=== PATIENT | male | born 1970 | race Caucasian/White ===

== ENCOUNTER 2022-06-13 08:37 | Day surgery (SDC) | payer BC, SELFPAY ==
[2022-06-13] MEDS: Lactated Ringers 1,000 ML 15 ML IV (08:45)
[2022-06-13 08:59] VITALS: BP 137/75; PULSE 64; RESP 16; TEMP 36.7; O2SAT 96; BMI 26.7
--- NOTE | 2022-06-13 09:04 | HP.PCM_ITS ---
HPI - General General Date of Admission: 06/13/22 Date of Service: 06/13/22 Chief Complaint: HPI Narrative DEVIKA FELIX, is a 51 M who presents arrives for a screening colonoscopy. He is not having any problems with his bowels. He denies any nausea, vomiting or diarrhea. He denies any signs of lower GI bleeding in the form of melena or hematochezia. He has no family history of colon cancer or colon polyps. His weight has been stable. He is not having any bleeding per rectum. Overall is in very good health. All other 16 review of systems are negative except as pertinent positive mentioned HPI. [facility] Medical History (Updated 06/08/22 @ 15:22 by Keke Jasso) Alcohol use Anxiety Syncope Unspecified right bundle-branch block Home Medications atenolol 25 mg tablet 12.5 mg PO BID 03/07/22 [History Last Taken 06/13/22 06:45] lorazepam 0.5 mg tablet (Ativan) 0.5 mg PO DAILY PRN Anxiety 03/07/22 [History Last Taken 06/13/22 06:45] Allergy/AdvReac Type Severity Reaction Status Date / Time No Known Allergies Allergy Verified 06/13/22 08:58 Family History Father Heart disease Brother Hypertension Diabetes Surgical History History of ankle surgery Social History Smoking Status: Never smoker alcohol intake: never ROS Review of Systems ROS Unobtainable: other Constitutional Constitutional: Denies fatigue, fever(s), poor appetite, weight gain or weight loss ENT HEENT: Denies mouth lesions Cardiovascular Cardiovascular: Denies abdominal bloating, abdominal edema or abdominal pain Respiratory/Chest Respiratory/Chest: Denies change in mental status, change in phlegm color, chest congestion or chest tightness Gastrointestinal Gastrointestinal: Denies belching, bloating, change in bowel habits, change in stool character, chewing difficulty, coffee ground emesis, constipation, cramping, diarrhea, dyspepsia, dysphagia, early satiety, excessive flatus, fecal incontinence, heartburn, hematemesis, hematochezia, hemorrhoids, loose stools, melena, nausea, odynophagia, rectal bleeding, tenesmus, vomiting or weight changes Genitourinary Genitourinary: Denies abdominal discomfort, burning urination or itching Musculoskeletal Musculoskeletal: Reports as per HPI; Denies muscle weakness or myalgias Integumentary Integumentary: Denies jaundice Neurologic Neurologic: Denies lack of coordination or weakness Psychiatric Psychiatric: Denies confusion, depression, memory loss, mood swings, paranoia or suicidal ideation Endocrine Endocrinology: Denies systems reviewed and no addt'l complaints, except as docum ented Hematologic/Lymphatic Hematologic/Lymphatic: Denies anemia, easy bleeding, easy bruising or lymphadenopathy Allergic/Immunologic Allergic/Immunologic: Denies systems reviewed and no addt'l complaints, except as documented Vital Signs Vital Signs Vital Signs: 06/13/22 08:59 06/13/22 08:59 Temperature 98.1 F Temperature Source Temporal Pulse Rate 64 Respiratory Rate 16 Respiratory Pattern Normal Blood Pressure 137/75 H Blood Pressure Mean 95 Blood Pressure Source Monitor Blood Pressure Position Supine Blood Pressure Location Left Arm Pulse Ox 96 Oxygen Delivery Method Room Air Weight Weight: 181 lb 3.52 oz Body Mass Index (BMI) 26.7 Physical Exam Const alert General Appearance: cooperative Orientation / Consciousness: oriented to person HEENT hearing grossly normal bilaterally Head and Scalp: normal to inspection Face and Sinus: face symmetric Nose: external nose normal Mouth: oral and palatal mucosa normal Eyes conjunctivae normal General Eye: normal appearance of both eyes Neck full ROM General: normal visual inspection Lymph Lymphatic: no lymphadenopathy noted Chest inspection of chest normal and palpation of chest normal Chest: symmetrical chest wall rise Resp normal respiratory effort Effort and Inspection: able to speak in complete sentences Cardio regular rate GI non-distended Percussion: normal to percussion Rectal Exam: deferred Neuro Speech: speech normal Gait (Neuro): normal gait Assessment & Plan Assessment/Plan (1) Encounter for screening for malignant neoplasm of colon: PLAN: He was explained alternatives, risk, benefits including not withstanding bleeding, infection, sepsis, perforation, need for emergent surgery . He will have an ASA of 1.
[2022-06-13 10:10] VITALS: BP 115/54; BP 137/75; PULSE 59; RESP 14; TEMP 36.8; O2SAT 97
--- NOTE | 2022-06-13 10:14 | OP.COLON_ITS ---
Patient Name: Brandon Nice Procedure Date: 06/13/2022 9:45 AM Date of : 1970 Age: 51 Procedure: Colonoscopy Indications: Screening for colorectal malignant neoplasm Providers: Crispin Marcano DO Medicines: Monitored Anesthesia Care Patient Profile: This is a 51 year old male. Refer to note in patient chart for documentation of history and physical. Last Colonoscopy: none. The patient's first colonoscopy is today. Complications: No immediate complications. Procedure: Pre-Anesthesia Assessment: - Prior to the procedure, a History and Physical was performed, and patient medications and allergies were reviewed. The risks and benefits of the procedure and the sedation options and risks were discussed with the patient. All questions were answered and informed consent was obtained. Patient identification and proposed procedure were verified by the physician in the pre-procedure area. Mental Status Examination: alert and oriented. Airway Examination: normal oropharyngeal airway and neck mobility. Respiratory Examination: clear to auscultation. CV Examination: normal. Prophylactic Antibiotics: The patient does not require prophylactic antibiotics. Prior Anticoagulants: The patient has taken no previous anticoagulant or antiplatelet agents. After reviewing the risks and benefits, the patient was deemed in satisfactory condition to undergo the procedure. The anesthesia plan was to use moderate sedation / analgesia (conscious sedation). Immediately prior to administration of medications, the patient was re-assessed for adequacy to receive sedatives. The heart rate, respiratory rate, oxygen saturations, blood pressure, adequacy of pulmonary ventilation, and response to care were monitored throughout the procedure. The physical status of the patient was re-assessed after the procedure. After I obtained informed consent, the scope was passed under direct vision. Throughout the procedure, the patient's blood pressure, pulse, and oxygen saturations were monitored continuously. The was introduced through the anus and advanced to the cecum, identified by appendiceal orifice and ileocecal valve. The colonoscopy was performed without difficulty. The patient tolerated the procedure well. The quality of the bowel preparation was good. Scope In: 9:55:28 AM Scope Withdrawal Time 0 hours 6 minutes 56 seconds Scope Out: 10:05:39 AM Total Procedure Duration Time 0 hours 10 minutes 11 seconds Findings: The perianal and digital rectal examinations were normal. The entire examined colon appeared normal on direct and retroflexion views. Impression: - The entire examined colon is normal on direct and retroflexion views. - No specimens collected. Recommendation: - Discharge patient to home. - Resume previous diet. - Continue present medications. - Await pathology results. - Repeat colonoscopy in 10 years for screening purposes. Procedure Code(s): --- Professional --- G0121, Colorectal cancer screening; colonoscopy on individual not meeting criteria for high risk CPT copyright 2017 [employer]. All rights reserved. The codes documented in this report are preliminary and upon manager operations and procurement review may be revised to meet current compliance requirements. Crispin Marcano DO 06/13/2022 10:14:15 AM This report has been signed electronically. Number of Addenda: 1 Note Initiated On: 06/13/2022 9:45 AM Addendum Number: 1 Addendum Date: 07/28/2022 6:09:21 AM MAC was used as sedation for this procedure. Crispin Marcano DO 07/28/2022 6:09:25 AM This report has been signed electronically.
[2022-06-13 10:17] VITALS: BP 107/61; BP 137/75; PULSE 62; RESP 14; O2SAT 96
[2022-06-13 10:20] VITALS: BP 114/61; BP 137/75; PULSE 58; RESP 14; O2SAT 96
[2022-06-13 10:25] VITALS: BP 116/68; BP 137/75; PULSE 59; RESP 16; TEMP 37.4; O2SAT 97
[2022-06-13 10:37] VITALS: BP 137/75
== END 2022-06-13 10:57 | disposition home or self-care (01) ==
LOC: EN 08:40 → AC 08:42
PROVIDERS: PCP Internal Medicine; Referring Provider Internal Medicine; Visit Provider Internal Medicine Gastroenterology
PROC: 0DJD8ZZ Inspection of Lower Intestinal Tract, Via Natural or Artificial Opening Endoscopic (ICD-10-PCS; CPT 45378; principal; 2022-06-13 09:40)
DX: Z12.11 Encounter for screening for malignant neoplasm of colon (principal); F41.9 Anxiety disorder, unspecified; Z79.899 Other long term (current) drug therapy
CPT/HCPCS: G0121; J7120; J2405

== ENCOUNTER → 2024-01-15 | Outpatient (CLI) | payer BC, SELFPAY ==
--- NOTE | 2024-01-15 09:20 | US_ITS ---
STUDY: RENAL ULTRASOUND - COMPLETE REASON FOR EXAM: Male, 53 years old. Renal Insufficiency TECHNIQUE: Ultrasound evaluation of the kidneys was performed with real-time and static estrada-scale imaging. COMPARISON: None. FINDINGS: RIGHT KIDNEY: Normal location of the right kidney, which is normal in size. The right kidney measures 11 cm x 4.8 cm x 5.3 cm. There is a normal cortex of the right kidney. The renal cortex measures 1.3 cm. There is no right renal mass or cyst. There are no right renal calculi. There is no right hydronephrosis. DISTAL RIGHT URETER: There is non-visualization of the distal right ureter. There is no demonstrated right ureterovesical junction calculus. There is a visualized right ureteral jet. LEFT KIDNEY: Normal location of the left kidney, which is normal in size. The left kidney measures 10.7 cm x 5 cm x 5.1 cm. There is a normal cortex of the left kidney. The renal cortex measures 1.6 cm. There is no left renal mass or cyst. There are no left renal calculi. There is no left hydronephrosis. DISTAL LEFT URETER: There is non-visualization of the distal left ureter. There is no demonstrated left ureterovesical junction calculus. There is a visualized left ureteral jet. BLADDER: The distended urinary bladder has a volume of 83 ml. There is a normal wall thickness of the distended urinary bladder. There is no demonstrated mass within the urinary bladder. There are no demonstrated bladder calculi. US/Kidney and Bladder IMPRESSION: Normal ultrasound of the kidneys and urinary bladder. Electronically Signed: Damion Serrano MD at 12:42 EDT ,
== END | disposition home or self-care (01) ==
PROVIDERS: PCP Internal Medicine; Referring Provider Internal Medicine; Visit Provider Internal Medicine
DX: N28.9 Disorder of kidney and ureter, unspecified (principal)
CPT/HCPCS: 76770

== ENCOUNTER → 2024-11-28 | Outpatient (CLI) | payer BC, SELFPAY ==
[2024-11-28 17:50] LABS: PSA,Total - Annual Screen 1.06 ng/mL (0.00-4.00)
== END | disposition home or self-care (01) ==
LOC: LAB 16:34
PROVIDERS: PCP Internal Medicine; Referring Provider Nurse Practitioner; Visit Provider Nurse Practitioner
DX: Z12.5 Encounter for screening for malignant neoplasm of prostate (principal)
CPT/HCPCS: 36415; 84153; G0103